=== PATIENT | male | born 1980 | race African-American/Black ===

== ENCOUNTER 2018-02-11 00:09 | Emergency (ER) | payer OTHER ==
[~2018-02-11] VITALS: Ht 180.3 cm; Wt 99.8 kg
[2018-02-11 00:26] VITALS: BP 134/78
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
[2018-02-11] MEDS ORDERED: ALBUTEROL SULF8.5 GM INH ×2 (00:27→01:53)
[2018-02-11] MEDS ORDERED: Albuterol ud Inhalation HHN ONE (00:45)
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
[2018-02-11] MEDS ORDERED: oxyCODONE HCL/Acetaminophen 5/325mg ORAL ONE (01:00)
--- NOTE | 2018-02-11 01:45 | NUR ---
ED Nurse Note: Cleaned the wounds and cover the dressing. Educated Pt change the dressing.
[2018-02-11] MEDS ORDERED: BACITRACIN ZIN1 EACH TOPIC (01:53)
[2018-02-11] MEDS ORDERED: LD2JL30 TOPIC (01:53)
[2018-02-11] MEDS ORDERED: IBUPROFEN600 MG ORAL (01:53)
--- NOTE | 2018-02-11 01:55 | Diagnostic Imaging Report ---
EXAM: XR Right Femur, 2 Views CLINICAL HISTORY: PAIN TECHNIQUE: Frontal and lateral views of the right femur. COMPARISON: No relevant prior studies available. FINDINGS: Limitations: Examination mildly limited due to patient positioning. Bones/joints: Unremarkable. No acute fracture. No dislocation. Soft tissues: Unremarkable. IMPRESSION: 1. Examination mildly limited due to patient positioning. 2. Unremarkable study given above limitation.
--- NOTE | 2018-02-11 01:56 | Diagnostic Imaging Report ---
EXAM: XR Right Tibia and Fibula, 2 Views CLINICAL HISTORY: PAIN TECHNIQUE: Frontal and lateral views of the right tibia and fibula. COMPARISON: No relevant prior studies available. FINDINGS: Bones/joints: Mild fragmentation at the tibial tuberosity may represent remote and/or healed Dunlow-Schlatter's disease in the proper clinical context. No acute fracture. No dislocation. Soft tissues: Unremarkable. No radiopaque foreign body. IMPRESSION: No acute abnormality.
--- NOTE | 2018-02-11 01:56 | Diagnostic Imaging Report ---
EXAM: XR Right Foot Complete, 3 or More Views CLINICAL HISTORY: PAIN TECHNIQUE: Frontal, lateral and oblique views of the right foot. COMPARISON: No relevant prior studies available. FINDINGS: Bones/joints: Unremarkable. No acute fracture. No dislocation. Soft tissues: Unremarkable. No radiopaque foreign body. IMPRESSION: Normal study.
[2018-02-11 02:00] VITALS: BP 130/85
[2018-02-11] MEDS ORDERED: Tetanus/Diptheria/Pertussis Vaccine 0.5ml Syr IM ONE (02:00)
[2018-02-11 02:05] VITALS: BP 130/85
--- NOTE | 2018-02-11 02:15 | NUR ---
ED Nurse Note: Pt cleared DC by YOMAIRA. Pt is AO x 4times, VSS, on room air no distress. Belongings given to Pt. DC and Meds instructions given to Pt, Pt understood well. ID bend removed. Pt walked out unit with steady gait with girlfriend. Girlfriend will drive home.
== END 2018-02-11 02:33 | disposition home or self-care (01) ==
LOC: EMR 00:50
DX: M79.661 Pain in right lower leg (principal); Z23 Encounter for immunization
CPT/HCPCS: 90471; 90715; 94640; 94664; 99284

== ENCOUNTER 2018-02-28 15:43 | Emergency (ER) | payer OTHER ==
[~2018-02-28] VITALS: Ht 180.3 cm; Wt 100.7 kg
[~2018-02-28 15:43] MED LIST: ALBUTEROL SULF8.5 GM INH; BACITRACIN ZIN1 EACH TOPIC; IBUPROFEN600 MG ORAL; LD2JL30 TOPIC
--- NOTE | 2018-02-28 17:26 | Emergency Room Report ---
History of Present Illness General Chief Complaint: Male Urogenital Problems Source: Patient Present Illness HPI 38-year-old male presents to the emergency department complaining of 2 day history of dysuria which resolved on its own. Patient also reports that his partner is wanting him to be treated for STI's as she recently developed some vaginal symptoms that were concerning for STI. Patient denies penile discharge , fevers, chills, rashes, genital lesions, testicular pain or tenderness, abdominal pain or tenderness. Patient denies swollen tender lymph nodes or genital lesions. pt. reports unprotected intercourse with his partner. Denies pain at this time. Denies hematuria, urinary frequency or urgency. Allergies: Coded Allergies: No Known Allergies (Unverified , 02/11/18) Patient History Past Medical History: see triage record Past Surgical History: none Pertinent Family History: none Immunizations: UTD Reviewed Nursing Documentation: PMH: Agreed; PSxH: Agreed Nursing Documentation-PM Past Medical History: No History, Except For Hx Asthma: Yes Review of Systems All Other Systems: negative except mentioned in HPI Physical Exam Vital Signs Date Time Temp Pulse Resp B/P (MAP) Pulse Ox O2 Delivery O2 Flow Rate FiO2 02/28/18 16:14 98.1 106 18 162/84 96 Room Air Sp02 EP Interpretation: reviewed, normal General Appearance: no apparent distress, alert, GCS 15, non-toxic Head: normocephalic, atraumatic Eyes: bilateral eye normal inspection, bilateral eye PERRL ENT: hearing grossly normal, normal voice Neck: full range of motion Respiratory: lungs clear, normal breath sounds, speaking full sentences Cardiovascular #1: regular rate, rhythm Gastrointestinal: non tender, soft Rectal: deferred Genitourinary: normal inspection, no CVA tenderness, deferred - genital exam deferred by pt. Musculoskeletal: back normal, gait/station normal, normal range of motion, non- tender Neurologic: alert, oriented x3, responsive, motor strength/tone normal, sensory intact, speech normal, grossly normal Psychiatric: judgement/insight normal Skin: normal color, no rash, warm/dry, well hydrated Medical Decision Making PA Attestation Dr. Cortez is my supervising Physician whom patient management has been discussed with. Diagnostic Impression: Primary Impression: Dysuria ER Course 38-year-old male presents to the emergency department complaining of 2 day history of dysuria which resolved on its own. Patient also reports that his partner is wanting him to be treated for STI's as she recently developed some vaginal symptoms that were concerning for STI. Patient denies penile discharge , fevers, chills, rashes, genital lesions, testicular pain or tenderness, abdominal pain or tenderness. Patient denies swollen tender lymph nodes or genital lesions. pt. reports unprotected intercourse with his partner. Denies pain at this time. Denies hematuria, urinary frequency or urgency. Ddx considered but are not limited to UTi , Urethritis, LGV, STI, Stone, Cystitis, prostatitis Vital signs: are WNL, pt. is afebrile H&PE are most consistent with Urethritis ORDERS: - UA : unremarkable/ WNL ED INTERVENTIONS: -Rocephin IM -Azithromycin PO DISCHARGE: At this time pt. is stable for d/c to home. Will provide printed patient care instructions, and any necessary prescriptions. Care plan and follow up instructions have been discussed with the patient prior to discharge. Labs Test 02/28/18 16:50 Urine Color Pale yellow Urine Appearance Clear Urine pH 8 (4.5-8.0) Urine Specific [place] 1.005 (1.005-1.035) Urine Protein Negative (NEGATIVE) Urine Glucose (UA) Negative (NEGATIVE) Urine Ketones Negative (NEGATIVE) Urine Blood Negative (NEGATIVE) Urine Nitrite Negative (NEGATIVE) Urine Bilirubin Negative (NEGATIVE) Urine Urobilinogen Normal MG/DL (0.0-1.0) Urine Leukocyte Esterase Negative (NEGATIVE) Last Vital Signs Date Time Temp Pulse Resp B/P (MAP) Pulse Ox O2 Delivery O2 Flow Rate FiO2 02/28/18 16:14 98.1 106 18 162/84 96 Room Air Disposition: HOME, SELF-CARE Condition: Stable Referrals: [facility] (PCP) Patient Instructions: Dysuria Additional Instructions: Take medications as directed. Follow up with a Primary Care Provider in 3-5 days, even if your symptoms have resolved. --Please review list of primary care clinics, if you do not already have a primary care provider Return sooner to ED if new symptoms occur, or current symptoms become worse. - Please note that this Emergency Department Report was dictated using [employer] retreader technology software, occasionally this can lead to erroneous entry secondary to interpretation by the dictation equipment. Marilyn Jane Feb 28, 2018 17:26
[2018-02-28 17:27] LABS: BILIRUBIN, URINE NEGATIVE (NEGATIVE); COLOR,URINE PALE YELLOW; GLUCOSE, URINE (UA) NEGATIVE (NEGATIVE); KETONES,URINE NEGATIVE (NEGATIVE); LEUKOCYTE ESTERASE ,URINE NEGATIVE (NEGATIVE); NITRITE,URINE NEGATIVE (NEGATIVE); PH,URINE 8 (4.5-8.0); PROTEIN,URINE NEGATIVE (NEGATIVE); UROBILINOGEN,URINE NORMAL MG/DL (0.0-1.0)
[2018-02-28] MEDS ORDERED: Lidocaine 1% MPF 10mg/ml 5ml INJ ONE (17:30)
[2018-02-28] MEDS ORDERED: Azithromycin 250mg tab ORAL ONE (17:30)
[2018-02-28 17:40] LABS: APPEARANCE,URINE CLEAR
--- NOTE | 2018-02-28 17:40 | NUR ---
ED Nurse Note: Pt feels burning sensation while urinating x " a couple of days" and more urgency. AOx4, VSS kelly. Will cont to monitor.
--- NOTE | 2018-02-28 17:41 | NUR ---
ED Nurse Note: Pt is not in bed to give medications at this time.
[2018-02-28 17:42] VITALS: BP 154/78
[2018-02-28 18:05] VITALS: BP 154/78
--- NOTE | 2018-02-28 18:05 | NUR ---
ED Nurse Note: Pt is clear to be discharged but left w/o signing DC paper.
== END 2018-02-28 18:05 | disposition home or self-care (01) ==
LOC: EMR 16:41
DX: R30.0 Dysuria (principal); J45.909 Unspecified asthma, uncomplicated
CPT/HCPCS: 81003; 96372; 96374; 99284; J0696; Q0144

== ENCOUNTER 2018-03-15 19:20 | Emergency (ER) | payer OTHER ==
[~2018-03-15] VITALS: Ht 180.3 cm; Wt 94.3 kg
[2018-03-15 19:30] VITALS: BP 145/94
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
[2018-03-15 20:00] VITALS: BP 132/88
--- NOTE | 2018-03-15 20:00 | NUR ---
ED Nurse Note: A/Ox4. Pt is cleared by Dr. Keerthi ZAPATA instruction and prescription given, pt verbalized understanding. ID wrist band and IV removed. All belongings given to pt. Pt denies any pain at this time. Pt ambulated out of ER with steady gait.
[2018-03-15] MEDS ORDERED: IBUPROFEN600 MG ORAL (20:01)
[2018-03-15] MEDS ORDERED: NORCO 5-325 TA1 EACH ORAL (20:01)
[2018-03-15] MEDS ORDERED: AUGMENTIN 875-1 EAC1 ORAL (20:01)
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
== END 2018-03-15 20:00 | disposition home or self-care (01) ==
LOC: EMR 19:47
DX: L03.116 Cellulitis of left lower limb (principal); L03.115 Cellulitis of right lower limb; S80.812A Abrasion, left lower leg, initial encounter; S80.811A Abrasion, right lower leg, initial encounter; V18.0XXA Pedal cycle driver injured in noncollision transport accident in nontraffic accident, initial encounter; Y93.55 Activity, bike riding; Y92.89 Other specified places as the place of occurrence of the external cause; J45.909 Unspecified asthma, uncomplicated
CPT/HCPCS: 99283

== ENCOUNTER 2018-04-04 09:04 | Emergency (ER) | payer OTHER ==
[~2018-04-04] VITALS: Ht 180.3 cm; Wt 86.2 kg
[~2018-04-04 09:04] MED LIST changes: +AUGMENTIN 875-1 EAC1 ORAL; +NORCO 5-325 TA1 EACH ORAL
[2018-04-04] MEDS ORDERED: NKM (09:17)
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
--- NOTE | 2018-04-04 09:35 | Emergency Room Report ---
History of Present Illness General Chief Complaint: Abdominal Pain Source: Patient Present Illness HPI Patient presents with right lower quadrant pain. This started last night. He has never had this pain before. He rates the pain 8/10 and constant. He denies any vomiting or diarrhea. he does feel nauseated. In addition he's got some chronic lesions in his lower legs. He has slight tenderness there. He denies dysuria or discharge No fevers, chills, chest pain, palpitations, shortness of breath, depression, visual changes, headache. Allergies: Coded Allergies: No Known Allergies (Unverified , 02/11/18) Patient History Past Medical History: see triage record Social History: Reports: smoking, drug use - See tox Social History Narrative From home Reviewed Nursing Documentation: PMH: Agreed; PSxH: Agreed Nursing Documentation-PMH Past Medical History: No History, Except For Hx Asthma: Yes Review of Systems All Other Systems: negative except mentioned in HPI Physical Exam Vital Signs Date Time Temp Pulse Resp B/P (MAP) Pulse Ox O2 Delivery O2 Flow Rate FiO2 04/04/18 09:10 97.9 78 18 150/94 96 Room Air Sp02 EP Interpretation: reviewed, normal General Appearance: well appearing, no apparent distress, GCS 15 Head: normocephalic Eyes: bilateral eye PERRL, bilateral eye Scleral Injection ENT: moist mucus membranes Neck: supple Respiratory: lungs clear, normal breath sounds Cardiovascular #1: regular rate, rhythm Cardiovascular #2: 2+ radial (R) Gastrointestinal: normal inspection, normal bowel sounds, non-distended, no guarding, no rebound, tenderness - Right lower quadrant Genitourinary: no CVA tenderness Musculoskeletal: back normal, gait/station normal, normal range of motion Neurologic: alert, oriented x3, grossly normal Psychiatric: mood/affect normal - Slightly reduced pattern of speech, no suicidal/homicidal ideation Skin: warm/dry, other - Tattoos Medical Decision Making Diagnostic Impression: Primary Impression: Abdominal pain Qualified Codes: R10.31 - Right lower quadrant pain Additional Impression: PCP abuse ER Course Patient presents with right lower quadrant pain beginning last night. Differential includes appendicitis, strain, UTI, diverticulitis, renal stone amongst others. He has a nonsurgical abdomen at this time however needs evaluation with labs and x-ray. The patient will be given a dose of Toradol, Pepcid, Reglan and Benadryl. X-rays unremarkable. Labs unremarkable except for tox positive for PCP. The patient is sleeping and his abdomen is soft. There is no surgical emergency at this time. The positive tox screen was discussed with the patient. He was advised to stop abusing this drug. Patient stable for outpatient observation and treatment. Laboratory Tests Test 04/04/18 10:05 White Blood Count 7.3 K/UL (4.8-10.8) Red Blood Count 5.31 M/UL (4.70-6.10) Hemoglobin 16.1 G/DL (14.2-18.0) Hematocrit 50.6 % (42.0-52.0) Mean Corpuscular Volume 95 FL (80-99) Mean Corpuscular Hemoglobin 30.3 PG (27.0-31.0) Mean Corpuscular Hemoglobin Concent 31.8 G/DL (32.0-36.0) L Red Cell Distribution Width 13.9 % (11.6-14.8) Platelet Count 208 K/UL (150-450) Mean Platelet Volume 8.4 FL (6.5-10.1) Neutrophils (%) (Auto) 59.5 % (45.0-75.0) Lymphocytes (%) (Auto) 30.1 % (20.0-45.0) Monocytes (%) (Auto) 6.9 % (1.0-10.0) Eosinophils (%) (Auto) 2.5 % (0.0-3.0) Basophils (%) (Auto) 1.0 % (0.0-2.0) Prothrombin Time 10.3 SEC (9.30-11.50) Prothrombin Time INR 1.0 (0.9-1.1) PTT 29 SEC (23-33) Urine Color Pale yellow Urine Appearance Clear Urine pH 6.5 (4.5-8.0) Urine Specific [place] 1.015 (1.005-1.035) Urine Protein Negative (NEGATIVE) Urine Glucose (UA) Negative (NEGATIVE) Urine Ketones Negative (NEGATIVE) Urine Blood Negative (NEGATIVE) Urine Nitrite Negative (NEGATIVE) Urine Bilirubin Negative (NEGATIVE) Urine Urobilinogen Normal MG/DL (0.0-1.0) Urine Leukocyte Esterase Negative (NEGATIVE) Sodium Level 141 MMOL/L (136-145) Potassium Level 4.2 MMOL/L (3.5-5.1) Chloride Level 105 MMOL/L (98-107) Carbon Dioxide Level 26 MMOL/L (21-32) Anion Gap 10 mmol/L (5-15) Blood Urea Nitrogen 15 mg/dL (7-18) Creatinine 1.1 MG/DL (0.55-1.30) Estimate Glomerular Filtration Rate > 60 mL/min (>60) Glucose Level 99 MG/DL (74-106) Calcium Level 8.8 MG/DL (8.5-10.1) Total Bilirubin 0.3 MG/DL (0.2-1.0) Aspartate Amino Transferase (AST) 14 U/L (15-37) L Alanine Aminotransferase (ALT) 30 U/L (12-78) Alkaline Phosphatase 95 U/L (46-116) Total Creatine Kinase 110 U/L (26-308) Total Protein 7.4 G/DL (6.4-8.2) Albumin 4.0 G/DL (3.4-5.0) Globulin 3.4 g/dL Albumin/Globulin Ratio 1.2 (1.0-2.7) Lipase 181 U/L (73-393) Urine Opiates Screen Negative (NEGATIVE) Urine Barbiturates Screen Negative (NEGATIVE) Phencyclidine (PCP) Screen Positive (NEGATIVE) H Urine Amphetamines Screen Negative (NEGATIVE) Urine Benzodiazepines Screen Negative (NEGATIVE) Urine Cocaine Screen Negative (NEGATIVE) Urine Marijuana (THC) Screen Negative (NEGATIVE) Serum Alcohol < 3 mg/dL Chest X-Ray Diagnostic Results Chest X-Ray Diagnostic Results : Chest X-Ray Ordered: Yes # of Views/Limited/Complete: 1 View Indication: Other EP Interpretation: Yes Interpretation: no consolidation, no effusion, no pneumothorax Impression: No acute disease Electronically Signed by: Electronically signed by Sebas Cortez MD Other X-Ray Diagnostic Results Other X-Ray Diagnostic Results : X-Ray ordered: Abdomen # of Views/Limited Vs Complete: 2 View Indication: Pain Interpretation: nonspecific bowel gas, no sbo, other - No masses Impression: No acute disease Electronically Signed by: Electronically signed by Sebas Cortez MD Last Vital Signs Date Time Temp Pulse Resp B/P (MAP) Pulse Ox O2 Delivery O2 Flow Rate FiO2 04/04/18 13:13 79 18 136/89 97 Room Air 04/04/18 13:13 97.9 Status: improved Disposition: HOME, SELF-CARE Condition: Improved Scripts Mag Hydrox/Al Hydrox/Simeth (MAALOX MAXIMUM STRENGTH SUSP) 355 Ml Oral.susp 30 ML PO Q6HR, #240 ML Prov: Sebas Cortez MD 04/04/18 Ibuprofen* (MOTRIN*) 600 Mg Tablet 600 MG ORAL Q6H PRN for For Pain, #20 TAB Prov: Sebas Cortez MD 04/04/18 Referrals: [facility] ([facility]P) Sebas Cortez MD Apr 04, 2018 09:35
[2018-04-04 09:38] VITALS: BP 150/94
--- NOTE | 2018-04-04 09:39 | NUR ---
ED Nurse Note: pt noted to be laughing and talking without apparent distress after md in to eval pt. no active
--- NOTE | 2018-04-04 09:40 | NUR ---
ED Nurse Note: no active vomiting
[2018-04-04] MEDS ORDERED: DiphenhydrAMINE 50mg/ml Inj IVP ONE (09:45)
[2018-04-04] MEDS ORDERED: Metoclopramide 10mg/2ml Inj IVP ONE (09:45)
[2018-04-04] MEDS ORDERED: Ketorolac 30mg Inj IV ONE (09:45)
[2018-04-04 10:20] LABS: APPEARANCE,URINE CLEAR; BILIRUBIN, URINE NEGATIVE (NEGATIVE); COLOR,URINE PALE YELLOW; GLUCOSE, URINE (UA) NEGATIVE (NEGATIVE); KETONES,URINE NEGATIVE (NEGATIVE); LEUKOCYTE ESTERASE ,URINE NEGATIVE (NEGATIVE); NITRITE,URINE NEGATIVE (NEGATIVE); PH,URINE 6.5 (4.5-8.0); PROTEIN,URINE NEGATIVE (NEGATIVE); UROBILINOGEN,URINE NORMAL MG/DL (0.0-1.0)
[2018-04-04 10:33] LABS: ANION GAP 10 mmol/L (5-15); BLOOD UREA NITROGEN 15 mg/dL (7-18); CALCIUM 8.8 MG/DL (8.5-10.1); CARBON DIOXIDE 26 MMOL/L (21-32); CHLORIDE 105 MMOL/L (98-107); CREATININE 1.1 MG/DL (0.55-1.30); POTASSIUM 4.2 MMOL/L (3.5-5.1); SODIUM 141 MMOL/L (136-145)
[2018-04-04 10:38] LABS: ALANINE AMINOTRANSFERASE 30 U/L (12-78); ALBUMIN/GLOBULIN RATIO 1.2 (1.0-2.7); ALKALINE PHOSPHATASE 95 U/L (46-116); ASPARTATE AMINO TRANSFERASE 14 U/L (15-37); BILIRUBIN,TOTAL 0.3 MG/DL (0.2-1.0); CREATINE KINASE 110 U/L (26-308)
--- NOTE | 2018-04-04 10:50 | Diagnostic Imaging Report ---
Indication: Abdominal pain Technique: Supine view of the abdomen Comparison: none Findings: Bowel gas pattern is unremarkable. No unusual masses or calcifications. Impression: No acute process
--- NOTE | 2018-04-04 10:51 | Diagnostic Imaging Report ---
Indication: Chest pain Technique: One view of the chest Comparison: none Findings: The lungs and pleural spaces are clear. The heart is enlarged. Impression: Cardiomegaly. No acute process
[2018-04-04 11:25] LABS: EOSINOPHILS % (AUTO) 2.5 % (0.0-3.0); HEMATOCRIT 50.6 % (42.0-52.0); HEMOGLOBIN 16.1 G/DL (14.2-18.0); LYMPHOCYTES % (AUTO) 30.1 % (20.0-45.0); MEAN CORPUSCULAR VOLUME 95 FL (80-99); MONOCYTES % (AUTO) 6.9 % (1.0-10.0); NEUTROPHILS % (AUTO) 59.5 % (45.0-75.0); PLATELET COUNT 208 K/UL (150-450); RED BLOOD COUNT 5.31 M/UL (4.70-6.10); RED CELL DISTRIBUTION WIDTH 13.9 % (11.6-14.8); WHITE BLOOD COUNT 7.3 K/UL (4.8-10.8)
--- NOTE | 2018-04-04 11:30 | NUR ---
ED Nurse Note: pt noted to be resting in room, no new orders. tolerating ivf well.
--- NOTE | 2018-04-04 12:42 | NUR ---
ED Nurse Note: pt noted to be eating chips in room despite rn advising to be npo at this time. awaits dispo, RHIANNON.
[2018-04-04] MEDS ORDERED: IBUPROFEN600 MG ORAL (12:54)
[2018-04-04] MEDS ORDERED: MAALOX MAXIMUM355 M1 PO (12:54)
[2018-04-04 13:13] VITALS: BP 136/89
--- NOTE | 2018-04-04 13:15 | NUR ---
ED Nurse Note:PT GIVEN DC ACI AND SCRIPT AGREES TO F/U PLAN. AMB STEADY GAIT OUT OF ED WITH FAMILY
== END 2018-04-04 13:16 | disposition home or self-care (01) ==
LOC: EMR 09:30
DX: R10.31 Right lower quadrant pain (principal); F16.10 Hallucinogen abuse, uncomplicated; J45.909 Unspecified asthma, uncomplicated
CPT/HCPCS: 36415; 71045; 74018; 80053; 80307; 80329; 81003; 82550; 83690; 85025; 85610; 85730; 96361; 96374; 96375; 99284; J1200; J1885; J2765; S0028